=== PATIENT | male | born 1950 | race Caucasian/White ===

== ENCOUNTER → 2016-10-12 | Outpatient (REF) | payer MEDICARE ==
[~2016-10-12] MED LIST: /CIPR75TA OR; ATEN25TA OR; FOLI1TAB OR; LACT10SO8 PO; LISI10TA4 OR; MULTIVIT PO; NEUTRAPHOS PO; THIA100T OR
== END ==
LOC: M LAB REF 12:38
PROVIDERS: ATTEND Internal Medicine
DX: K70.31 Alcoholic cirrhosis of liver with ascites (principal)

== ENCOUNTER → 2017-01-29 | Outpatient (REF) | payer MEDICARE | LOC: M LAB REF 13:13 | PROVIDERS: ATTEND Internal Medicine | DX: K70.31 Alcoholic cirrhosis of liver with ascites (principal) ==

== ENCOUNTER → 2017-11-04 | Outpatient (REF) | payer MEDICARE ==
[2017-11-04 12:41] LABS: AMMONIA 18 uMOL/L (<32)
== END ==
LOC: M LAB REF 12:06
DX: K70.31 Alcoholic cirrhosis of liver with ascites (principal)
CPT/HCPCS: 82140

== ENCOUNTER → 2018-05-12 | Outpatient (REF) | payer MEDICARE ==
[2018-05-13 13:46] LABS: ALPHA FETOPROTEIN TUMOR QUANT 8.5 NG/ML (<8.1)
== END ==
LOC: M LAB REF 12:43
DX: K70.30 Alcoholic cirrhosis of liver without ascites (principal)
CPT/HCPCS: 82105

== ENCOUNTER → 2018-11-17 | Outpatient (REF) | payer MEDICARE | LOC: M LAB REF 12:46 | PROVIDERS: ATTEND Internal Medicine | DX: K70.30 Alcoholic cirrhosis of liver without ascites (principal) ==

== ENCOUNTER → 2019-05-22 | Outpatient (REF) | payer MEDICARE | LOC: M LAB REF 12:33 | PROVIDERS: ATTEND Internal Medicine | DX: K70.30 Alcoholic cirrhosis of liver without ascites (principal) ==

== ENCOUNTER 2019-06-08 08:38 | Day surgery (SDC) | payer MEDICARE ==
[~2019-06-08] VITALS: Ht 177.8 cm; Wt 125.8 kg
[~2019-06-08 08:38] MED LIST changes: +COLA100C5 PO; +CONS10SO3 PO; +FOLI1TAB11 PO; +FURO20TA2 PO; +GLIP5TAB8 PO; +MAGN64TASA PO; +MULTCAP PO; +NS 1,000 ML IV ONE; +ONGL1TAB9 PO; +PANT40TA3 PO; +POTA1TAB23 PO; +PROBCAP14 PO; +PROP60TA18 PO; +SPIR100T3 PO; +XIFA550T PO
[2019-06-08] MEDS ORDERED: PROPOFOL 200 MG/20 ML VIAL As Ordered ONE (09:27)
[2019-06-08] MEDS ORDERED: LIDOCAINE 2% INJ 100 MG/5 ML SDV (FOR ANES.) As Ordered ONE (09:27)
[2019-06-08 11:06] VITALS: BP 122/58
--- NOTE | 2019-06-08 15:50 | ROOR ---
Patient Name: Ford Olivarez Procedure Date: 06/08/2019 10:01 AM Date of : 1950 Age: 69 Room: [facility] Gender: Male Note Status: Finalized Procedure: Colonoscopy Indications: High risk colon cancer surveillance: Personal history of colonic polyps, Last colonoscopy: March 2014 Providers: Chidi Cardona MD Referring MD: BOUCHRA MANDEL JR, MD Requesting Provider: Medicines: Monitored Anesthesia Care Complications: No immediate complications. Procedure: Pre-Anesthesia Assessment: - Prior to the procedure, a History and Physical was performed, and patient medications and allergies were reviewed. The patient is competent. The risks and benefits of the procedure and the sedation options and risks were discussed with the patient. All questions were answered and informed consent was obtained. Patient identification and proposed procedure were verified by the physician, the nurse and the anesthesiologist in the procedure room. Mental Status Examination: alert and oriented. CV Examination: regular rate and rhythm. Prophylactic Antibiotics: The patient does not require prophylactic antibiotics. Prior Anticoagulants: The patient has taken no previous anticoagulant or antiplatelet agents. ASA Grade Assessment: III - A patient with severe systemic disease. After reviewing the risks and benefits, the patient was deemed in satisfactory condition to undergo the procedure. The anesthesia plan was to use monitored anesthesia care (MAC). Immediately prior to administration of medications, the patient was re-assessed for adequacy to receive sedatives. The heart rate, respiratory rate, oxygen saturations, blood pressure, adequacy of pulmonary ventilation, and response to care were monitored throughout the procedure. The physical status of the patient was re-assessed after the procedure. The Colonoscope was introduced through the anus and advanced to the cecum, identified by appendiceal orifice and ileocecal valve. The colonoscopy was performed without difficulty. The patient tolerated the procedure well. The quality of the bowel preparation was excellent. Findings: The perianal and digital rectal examinations were normal. A 3 mm polyp was found in the hepatic flexure. The polyp was semi-pedunculated. The polyp was removed with a jumbo cold forceps. Resection and retrieval were complete. Estimated blood loss was minimal. The exam was otherwise without abnormality. Impression: - One 3 mm polyp at the hepatic flexure, removed with a jumbo cold forceps. Resected and retrieved. - The examination was otherwise normal. Recommendation: - Discharge patient to home. - Resume previous diet. - Continue present medications. - Await pathology results. - Repeat colonoscopy in 5 years for surveillance. Chidi Cardona MD Chidi Cardona MD 06/08/2019 10:51:55 AM Electronically signed by Chidi Cardona MD Number of Addenda: 0 Note Initiated On: 06/08/2019 10:01 AM Estimated Blood Loss: Estimated blood loss was minimal.
== END 2019-06-08 11:08 | disposition home or self-care (01) ==
LOC: M OPP 08:38
PROVIDERS: ATTEND Surgery
DX: Z86.010 Personal history of colon polyps (principal); D12.3 Benign neoplasm of transverse colon; E11.9 Type 2 diabetes mellitus without complications; I10 Essential (primary) hypertension; R12 Heartburn; K74.60 Unspecified cirrhosis of liver; Z83.79 Family history of other diseases of the digestive system; Z79.84 Long term (current) use of oral hypoglycemic drugs; Z79.899 Other long term (current) drug therapy

== ENCOUNTER → 2020-06-03 | Outpatient (REF) | payer MEDICARE ==
[~2020-06-03] MED LIST changes: -NS 1,000 ML IV ONE; +PANT40TA29 PO; -PANT40TA3 PO
== END ==
LOC: M LAB REF 12:12
PROVIDERS: ATTEND Internal Medicine
DX: K70.30 Alcoholic cirrhosis of liver without ascites (principal)

== ENCOUNTER → 2020-08-20 | Outpatient (CLI) | payer MEDICARE ==
[~2020-08-20] MED LIST changes: +ELIQ5TAB PO; +KLOR10TA76 PO; +TRAD5TAB PO; +VITA100T89 PO
--- NOTE | 2020-08-20 12:25 | REP ---
INDICATION: PAIN IN RIGHT SHOULDER. COMPARISON: None. TECHNIQUE: Four views of the right shoulder are presented FINDINGS: . the right glenohumeral and acromioclavicular joints appear normally aligned. The AC joint is somewhat widened suggesting previous resection of the distal clavicle or post traumatic osteolysis. There is spurring of the inferior aspect of the acromion process. Periarticular soft tissues are unremarkable. The visualized right rib cage is intact. IMPRESSION: Acromion process spurring. Some widening of the AC joint. No acute bony abnormality. <Electronically signed by Kody Back > 08/20/20 [id number]
--- NOTE | 2020-08-20 12:26 | REP ---
INDICATION: PAIN IN RIGHT SHOULDER. COMPARISON: Comparison chest x-ray September 13, 2015.. TECHNIQUE: AP and tube angled views of the right clavicle are obtained. FINDINGS: The acromioclavicular joint is normally aligned. The AC joint is somewhat widened question prior osteolysis or resection of the distal clavicle. Glenohumeral articulation is normally aligned. No erosive changes seen. No fracture is noted. IMPRESSION: No acute bony abnormality. Some widening of the AC joint. <Electronically signed by Kody Back > 08/20/20 [id number]
== END ==
LOC: M ADAMS 09:59
PROVIDERS: ATTEND Nurse Practitioner Family
DX: M25.511 Pain in right shoulder (principal); M25.711 Osteophyte, right shoulder

== ENCOUNTER → 2020-09-04 | Outpatient (REF) | payer MEDICARE ==
[2020-09-04 11:46] LABS: INR 1.27; PROTHROMBIN TIME 16.2 SECONDS (12.5-14.3)
== END ==
LOC: M LAB REF 11:09
PROVIDERS: ATTEND Internal Medicine
DX: K70.30 Alcoholic cirrhosis of liver without ascites (principal)

== ENCOUNTER → 2020-09-19 | Outpatient (CLI) | payer MEDICARE | LOC: M LABSMTC 10:30 | PROVIDERS: ATTEND Anesthesiology | DX: Z01.812 Encounter for preprocedural laboratory examination (principal); Z20.822 Contact with and (suspected) exposure to COVID-19 ==

== ENCOUNTER 2020-09-24 07:36 | Day surgery (SDC) | payer MEDICARE ==
[~2020-09-24] VITALS: Ht 177.8 cm; Wt 125.6 kg
[~2020-09-24 07:36] MED LIST changes: +NS 1,000 ML IV ONE
[2020-09-24] MEDS ORDERED: LIDOCAINE 2% 100MG/5ML SDV (FOR ANES.) As Ordered ONE (07:41)
[2020-09-24] MEDS ORDERED: fentaNYL 100 MCG/2 ML INJECTION (J3010) As Ordered ONE (07:41)
[2020-09-24] MEDS ORDERED: propofoL 200 MG/20 ML VIAL As Ordered ONE (07:42)
[2020-09-24 09:35] VITALS: BP 118/74
--- NOTE | 2020-09-24 09:35 | ROOR ---
Patient Name: Ford Olivarez Procedure Date: 09/24/2020 8:54 AM Date of : 1950 Age: 70 Room: [facility] Gender: Male Note Status: Finalized Procedure: Upper GI endoscopy Indications: Surveillance for malignancy due to personal history of Mosquera's esophagus Providers: Chidi Cardona MD Referring MD: BOUCHRA MANDEL JR, MD Requesting Provider: Medicines: Monitored Anesthesia Care Complications: No immediate complications. Procedure: Pre-Anesthesia Assessment: - Prior to the procedure, a History and Physical was performed, and patient medications and allergies were reviewed. The patient is competent. The risks and benefits of the procedure and the sedation options and risks were discussed with the patient. All questions were answered and informed consent was obtained. Patient identification and proposed procedure were verified by the physician, the nurse and the anesthesiologist in the procedure room. Mental Status Examination: alert and oriented. Prophylactic Antibiotics: The patient does not require prophylactic antibiotics. Prior Anticoagulants: The patient has taken no previous anticoagulant or antiplatelet agents. ASA Grade Assessment: III - A patient with severe systemic disease. After reviewing the risks and benefits, the patient was deemed in satisfactory condition to undergo the procedure. The anesthesia plan was to use monitored anesthesia care (MAC). Immediately prior to administration of medications, the patient was re-assessed for adequacy to receive sedatives. The heart rate, respiratory rate, oxygen saturations, blood pressure, adequacy of pulmonary ventilation, and response to care were monitored throughout the procedure. The physical status of the patient was re-assessed after the procedure. The Endoscope was introduced through the mouth, and advanced to the second part of duodenum. The upper GI endoscopy was accomplished without difficulty. The patient tolerated the procedure well. Findings: The esophagus and gastroesophageal junction were examined with white light. There were esophageal mucosal changes consistent with long-segment Mosquera's esophagus. These changes involved the mucosa at the upper extent of the gastric folds (40 cm from the incisors) extending to the Z-line. Two tongues of salmon-colored mucosa were present from 30 to 40 cm. The maximum longitudinal extent of these esophageal mucosal changes was 10 cm in length. Mucosa was biopsied with a cold forceps for histology. One specimen bottle was sent to pathology. Estimated blood loss was minimal. Patchy moderate inflammation characterized by congestion (edema), erythema and granularity was found on the greater curvature of the stomach and in the prepyloric region of the stomach. This was biopsied with a cold forceps for histology. Estimated blood loss was minimal. The first portion of the duodenum and second portion of the duodenum were normal. 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 Biopsied. - Chronic gastritis. Biopsied. - Normal first portion of the duodenum and second portion of the duodenum. Recommendation: - Discharge patient to home. - Resume previous diet. - Continue present medications. - Await pathology results. Procedure Code(s): --- Professional --- 55322, Esophagogastroduodenoscopy, flexible, transoral; with biopsy, single or multiple Diagnosis Code(s): --- Professional --- K22.70, Mosquera's esophagus without dysplasia K29.50, Unspecified chronic gastritis without bleeding CPT copyright 2019 [employer]. All rights reserved. The codes documented in this report are preliminary and upon screwhead polisher review may be revised to meet current compliance requirements. Chidi Cardona MD Chidi Cardona MD 09/24/2020 9:34:54 AM Electronically signed by Chidi Cardona MD Number of Addenda: 0 Note Initiated On: 09/24/2020 8:54 AM Estimated Blood Loss: Estimated blood loss was minimal.
== END 2020-09-24 09:44 | disposition home or self-care (01) ==
LOC: M OPP 07:36
PROVIDERS: ATTEND Surgery
DX: K22.70 Barrett's esophagus without dysplasia (principal); K29.50 Unspecified chronic gastritis without bleeding; D13.0 Benign neoplasm of esophagus; D13.1 Benign neoplasm of stomach; I48.91 Unspecified atrial fibrillation; E11.9 Type 2 diabetes mellitus without complications; K21.9 Gastro-esophageal reflux disease without esophagitis; M19.90 Unspecified osteoarthritis, unspecified site; K74.60 Unspecified cirrhosis of liver; Z79.01 Long term (current) use of anticoagulants; G47.30 Sleep apnea, unspecified; F10.20 Alcohol dependence, uncomplicated; Z79.84 Long term (current) use of oral hypoglycemic drugs; Z79.899 Other long term (current) drug therapy
CPT/HCPCS: 43239; 88305; J3010

== ENCOUNTER → 2020-10-09 | Outpatient (CLI) | payer MEDICARE ==
[~2020-10-09] MED LIST changes: -NS 1,000 ML IV ONE
== END ==
LOC: M RADPRO 09:00
PROVIDERS: ATTEND Physician Assistant
DX: M25.511 Pain in right shoulder (principal); Z53.9 Procedure and treatment not carried out, unspecified reason

== ENCOUNTER → 2020-11-26 | Outpatient (REF) | payer MEDICARE | LOC: M LAB REF 12:27 | PROVIDERS: ATTEND Internal Medicine | DX: K70.30 Alcoholic cirrhosis of liver without ascites (principal) ==

== ENCOUNTER → 2020-11-29 | Outpatient (CLI) | payer MEDICARE | LOC: M LABSMTC 09:46 | PROVIDERS: ATTEND Internal Medicine Cardiovascular Disease | DX: Z20.822 Contact with and (suspected) exposure to COVID-19 (principal) ==

== ENCOUNTER → 2021-02-10 | Outpatient (REF) | payer MEDICARE | LOC: M LAB REF 11:15 | PROVIDERS: ATTEND Internal Medicine | DX: K70.30 Alcoholic cirrhosis of liver without ascites (principal) ==

== ENCOUNTER 2021-02-14 10:10 | Emergency (ER) | payer MEDICARE ==
[~2021-02-14] VITALS: Ht 180.3 cm; Wt 117.8 kg
[2021-02-14] MEDS ORDERED: TRAM50TA2 PO (11:42)
[2021-02-14] MEDS ORDERED: TRIA25CR TOP (13:26)
[2021-02-14 13:39] VITALS: BP 129/74
== END 2021-02-14 13:40 | disposition home or self-care (01) ==
LOC: M ED 10:10
DX: N47.1 Phimosis (principal); N99.89 Other postprocedural complications and disorders of genitourinary system; I48.91 Unspecified atrial fibrillation; Z79.01 Long term (current) use of anticoagulants; Z79.899 Other long term (current) drug therapy; Z98.890 Other specified postprocedural states

== ENCOUNTER → 2021-03-14 | Outpatient (CLI) | payer MEDICARE ==
[~2021-03-14] MED LIST changes: +TRAM50TA2 PO; +TRIA25CR TOP
== END ==
LOC: M LABSMTC 10:09
PROVIDERS: ATTEND Internal Medicine Cardiovascular Disease
DX: Z01.812 Encounter for preprocedural laboratory examination (principal); Z20.822 Contact with and (suspected) exposure to COVID-19

== ENCOUNTER → 2021-03-17 | Outpatient (REF) | payer MEDICARE ==
[~2021-03-17] MED LIST changes: +JARD1TAB3; +POTA1TAB23
[2021-03-17 17:43] LABS: INR 1.19; PROTHROMBIN TIME 15.6 SECONDS (12.7-14.5)
== END ==
LOC: M LAB REF 16:27
PROVIDERS: ATTEND Internal Medicine
DX: Z01.818 Encounter for other preprocedural examination (principal); N47.1 Phimosis; I48.91 Unspecified atrial fibrillation; I10 Essential (primary) hypertension

== ENCOUNTER → 2021-03-26 | Outpatient (CLI) | payer MEDICARE ==
[~2021-03-26] MED LIST changes: +CLOP75TA2 PO; -POTA1TAB23
== END ==
LOC: M LABSMTC 11:40
PROVIDERS: ATTEND Anesthesiology
DX: Z01.812 Encounter for preprocedural laboratory examination (principal); Z20.822 Contact with and (suspected) exposure to COVID-19

== ENCOUNTER → 2021-03-26 | Outpatient (CLI) | payer MEDICARE ==
--- NOTE | 2021-03-26 16:28 | REP ---
INDICATION: PHIMOSIS COMPARISON: 09/13/2015. TECHNIQUE: PA/Lateral FINDINGS: Lungs: Clear, no infiltrate. Heart: There is stable mild cardiomegaly. Mediastinum: Mediastinal silhouette unremarkable and unchanged. There is mild elevation of the right hemidiaphragm unchanged. Pleural angles: Unremarkable.. Bones and soft tissues: There are degenerative changes of the spine without compression deformity. IMPRESSION: No acute pulmonary disease. Stable mild cardiomegaly. <Electronically signed by Joey Ramey > 03/26/21 [id number]
== END ==
LOC: M PLAIMG 12:22
PROVIDERS: ATTEND Nurse Practitioner Women's Health
DX: Z01.818 Encounter for other preprocedural examination (principal); N47.1 Phimosis; I51.7 Cardiomegaly; Z20.822 Contact with and (suspected) exposure to COVID-19
CPT/HCPCS: 71046; U0002

== ENCOUNTER 2021-03-27 06:59 | Day surgery (SDC) | payer MEDICARE ==
[~2021-03-27] VITALS: Ht 177.8 cm; Wt 119.2 kg
[~2021-03-27 06:59] MED LIST changes: -CLOP75TA2 PO; -KLOR10TA76 PO; +POTA-136 PO; +ceFAZolin SOD 1 GM in D5W MINI-BAG PLUS 50 ML IV ONE; +ceFAZolin SOD 2 GM in IV 1 EA IV ONE
[2021-03-27] MEDS ORDERED: LR 1,000 ML IV ONE (07:45)
[2021-03-27] MEDS ORDERED: MIDAZOLAM INJ 2MG/2ML VIAL (J2250 PER 1MG) As Ordered ONE (07:57)
[2021-03-27] MEDS ORDERED: ONDANSETRON 4MG/2ML VIAL As Ordered ONE (07:57)
[2021-03-27] MEDS ORDERED: dexameTHASONE 4 MG/ML 1ML VIAL (J1100 PER 1MG) As Ordered ONE (07:57)
[2021-03-27] MEDS ORDERED: LIDOCAINE 2% INJ 100 MG/5 ML SYRINGE As Ordered ONE (07:57)
[2021-03-27] MEDS ORDERED: fentaNYL 100 MCG/2 ML INJECTION (J3010) As Ordered ONE ×2 (07:57→09:49)
[2021-03-27] MEDS ORDERED: propofoL 200 MG/20 ML VIAL As Ordered ONE (07:57)
[2021-03-27] MEDS ORDERED: LIDOCAINE 2% 100MG/5ML SDV (FOR ANES.) As Ordered ONE (08:03)
[2021-03-27] MEDS ORDERED: CLOP75TA2 PO (08:17)
[2021-03-27] MEDS ORDERED: PROPRANOLOL 20 MG TAB PO ONE (08:30)
[2021-03-27 08:31] VITALS: BP 167/82
[2021-03-27] MEDS ORDERED: LIDOCAINE 5% OINT 30GM TUBE As Ordered ONE (08:31)
[2021-03-27] MEDS ORDERED: BACITRACIN OINTMENT 30GM TUBE As Ordered ONE (08:33)
--- NOTE | 2021-03-27 11:00 | ROOPDOC ---
[facility] Report Of Operation Report of Operation DATE OF PROCEDURE: 03/27/21 PREOPERATIVE DIAGNOSIS: Phimosis. POSTOPERATIVE DIAGNOSIS: Phimosis. PROCEDURE: Circumcision. SURGEON: Dr. Franchesca Hammond COMPLAINTS COORDINATOR: None. ANESTHESIA: General. OPERATIVE INDICATIONS: This 70-year-old who has had recurrent episodes of balanoposthitis. It was recommended that he undergo a circumcision to help prevent this from happening. He is brought to the operating room today for treatment. DESCRIPTION OF PROCEDURE: The patient was brought to the operating room, and general anesthesia was induced. Prophylactic antibiotics were infused. He was then placed in the supine position and prepped and draped in the usual sterile fashion. At this point, circumcising incisions were made at the level of the coronal sulcus with the foreskin retracted off the glans and also with it pulled on top of the glans. All the skin in between the two circumcising incisions was then removed using electrocautery. Once that was done, any small bleeding vessels were controlled with electrocautery. Once satisfied with hemostasis, the remaining skin on the penile shaft was reapproximated to the glans using interrupted 3-0 chromic suture. After that was done, dressings were applied, including a Sujata and a Coban, and once the dressings were applied this marked the conclusion of the procedure. The patient was then awakened from anesthesia and transported to the recovery room in stable condition. ESTIMATED BLOOD LOSS: 30 mL. COMPLICATIONS: None. SPECIMENS: Foreskin. PLAN: The patient will be discharged home. He will leave his dressing on for 2 days and then remove it in the shower. He will followup in urology clinic in approximately 2-3 weeks for a postoperative visit. FRANCHESCA HAMMOND MD Mar 27, 2021 11:00
[2021-03-27] MEDS ORDERED: fentaNYL 100 MCG/2 ML INJECTION (J3010) IV PRN (11:05)
[2021-03-27] MEDS ORDERED: LR 1,000 ML IV SCH (11:05)
[2021-03-27] MEDS ORDERED: METOCLOPRAMIDE INJ 10MG/2ML VIAL (J2765 PER 1) IV PRN (11:05)
[2021-03-27] MEDS ORDERED: ONDANSETRON 4MG/2ML VIAL IV PRN (11:05)
[2021-03-27] MEDS ORDERED: traMADol 50 MG TAB PO PRN (11:10)
[2021-03-27 11:35] VITALS: BP 132/85
== END 2021-03-27 12:20 | disposition home or self-care (01) ==
LOC: M SDC 06:59
PROVIDERS: ATTEND Urology
DX: N47.1 Phimosis (principal); I10 Essential (primary) hypertension; R51.9 Headache, unspecified; E11.9 Type 2 diabetes mellitus without complications; I48.91 Unspecified atrial fibrillation; M54.5 Low back pain; K22.70 Barrett's esophagus without dysplasia; K70.30 Alcoholic cirrhosis of liver without ascites; G47.33 Obstructive sleep apnea (adult) (pediatric); Z86.79 Personal history of other diseases of the circulatory system; Z79.01 Long term (current) use of anticoagulants; Z79.899 Other long term (current) drug therapy
CPT/HCPCS: 54161; 88304; J0690; J1100; J2250; J2405; J3010

== ENCOUNTER → 2021-07-28 | Outpatient (CLI) | payer MEDICARE ==
[~2021-07-28] MED LIST changes: +CLOP75TA2 PO; -ceFAZolin SOD 1 GM in D5W MINI-BAG PLUS 50 ML IV ONE; -ceFAZolin SOD 2 GM in IV 1 EA IV ONE
== END ==
LOC: M RAD 08:32
PROVIDERS: ATTEND Internal Medicine
DX: K70.30 Alcoholic cirrhosis of liver without ascites (principal)

== ENCOUNTER → 2022-08-26 | Outpatient (CLI) | payer MEDICARE | LOC: M RAD 07:18 | PROVIDERS: ATTEND Internal Medicine | DX: K70.30 Alcoholic cirrhosis of liver without ascites (principal); N28.1 Cyst of kidney, acquired ==

== ENCOUNTER → 2022-10-27 | Outpatient (CLI) | payer MEDICARE ==
[2022-10-27 14:59] LABS: BASO % 0.6 % (0.0-1.0); EOS # 0.6 10^3/uL (0.0-0.5); EOS % 8.6 % (0.0-3.0); HEMATOCRIT 45.3 % (42.0-52.0); HEMOGLOBIN 14.4 g/dl (13.5-17.5); LYMPH % 15.2 % (24.0-44.0); MEAN CORPUSCULAR HGB CONC 31.8 g/dl (32.0-36.5); MEAN CORPUSCULAR VOLUME 94.4 fl (80.0-96.0); MONO # 0.7 10^3/uL (0.0-0.8); NEUTROPHILS # 4.2 10^3/uL (1.5-8.5); NEUTROPHILS % 65.3 % (36.0-66.0); WHITE BLOOD COUNT 6.5 10^3/uL (4.0-10.0)
[2022-10-27 15:23] LABS: ALBUMIN 3.1 G/DL (3.2-5.2); ALKALINE PHOSPHATASE 78 U/L (46-116); ALT/SGPT 17 U/L (7.0-40); AST/SGOT 21 U/L (<34); BILIRUBIN,TOTAL 1.1 MG/DL (0.3-1.2); BLOOD UREA NITROGEN 16 MG/DL (9-23); CALCIUM LEVEL 8.5 MG/DL (8.3-10.6); CARBON DIOXIDE LEVEL 31 MMOL/L (20-31); CHLORIDE LEVEL 102 MMOL/L (98-107); CHOLESTEROL LEVEL 156 MG/DL (<200); CHOLESTEROL RISK RATIO 2.97 (<5); CREATININE FOR GFR 0.94 MG/DL (0.70-1.30); GLOMERULAR FILTRATION RATE > 60.0 (>42); GLUCOSE, FASTING 131 MG/DL (74-106); HDL CHOLESTEROL 52.4 MG/DL (>40); LDL CHOLESTEROL 85.6 MG/DL (<100); MAGNESIUM LEVEL 1.6 MG/DL (1.8-2.4); NON-HDL-C 103.6 MG/DL; POTASSIUM SERUM 3.6 MMOL/L (3.5-5.1); SODIUM LEVEL 140 MMOL/L (136-145); TOTAL PROTEIN 7.6 G/DL (5.7-8.2); TRIGLYCERIDES LEVEL 90 MG/DL (<150)
[2022-10-27 16:04] LABS: PLATELET COUNT, AUTOMATED 87 10^3/uL (150-450)
[2022-10-27 16:17] LABS: HEMOGLOBIN A1c 6.2 % (4.0-6.0)
== END ==
LOC: M LABDRWAD 11:29
PROVIDERS: ATTEND Internal Medicine
DX: E78.00 Pure hypercholesterolemia, unspecified (principal); E11.36 Type 2 diabetes mellitus with diabetic cataract; I10 Essential (primary) hypertension; E83.42 Hypomagnesemia

== ENCOUNTER → 2023-03-08 | Outpatient (REF) | payer MEDICARE ==
[2023-03-08 12:45] LABS: HEMOGLOBIN 12.7 g/dl (13.5-17.5); MEAN CORPUSCULAR VOLUME 90.5 fl (80.0-96.0); RED BLOOD COUNT 4.53 10^6/uL (4.30-6.10)
[2023-03-08 12:48] LABS: PLATELET COUNT, AUTOMATED 78 10^3/uL (150-450)
[2023-03-08 13:16] LABS: ALBUMIN 3.1 G/DL (3.2-5.2); ALKALINE PHOSPHATASE 83 U/L (46-116); ALT/SGPT 23 U/L (7.0-40); AST/SGOT 21 U/L (<34); BILIRUBIN,TOTAL 0.6 MG/DL (0.3-1.2); BLOOD UREA NITROGEN 16 MG/DL (9-23); CALCIUM LEVEL 8.9 MG/DL (8.3-10.6); CARBON DIOXIDE LEVEL 30 MMOL/L (20-31); CHLORIDE LEVEL 103 MMOL/L (98-107); CREATININE FOR GFR 0.87 MG/DL (0.70-1.30); GLOMERULAR FILTRATION RATE > 60.0 (>42); GLUCOSE, FASTING 139 MG/DL (74-106); POTASSIUM SERUM 4.3 MMOL/L (3.5-5.1); SODIUM LEVEL 141 MMOL/L (136-145); TOTAL PROTEIN 7.4 G/DL (5.7-8.2)
[2023-03-08 13:26] LABS: HEMOGLOBIN A1c 6.2 % (4.0-6.0)
== END ==
LOC: M LABDRWAD 12:18
PROVIDERS: ATTEND Internal Medicine
DX: I10 Essential (primary) hypertension (principal); E11.21 Type 2 diabetes mellitus with diabetic nephropathy; K22.70 Barrett's esophagus without dysplasia

== ENCOUNTER → 2023-04-05 | Outpatient (CLI) | payer MEDICARE | LOC: M RAD 07:39 | PROVIDERS: ATTEND Internal Medicine | DX: K74.60 Unspecified cirrhosis of liver (principal); K76.0 Fatty (change of) liver, not elsewhere classified; R16.0 Hepatomegaly, not elsewhere classified ==

== ENCOUNTER → 2023-07-07 | Outpatient (REF) | payer MEDICARE ==
[~2023-07-07] MED LIST changes: +GLIP5TAB17 PO; -GLIP5TAB8 PO
[2023-07-07 17:18] LABS: HEMATOCRIT 33.9 % (42.0-52.0); HEMOGLOBIN 9.7 g/dl (13.5-17.5); MEAN CORPUSCULAR HEMOGLOBIN 24.6 pg (27.0-33.0); MEAN CORPUSCULAR HGB CONC 28.6 g/dl (32.0-36.5); MEAN CORPUSCULAR VOLUME 85.8 fl (80.0-96.0); PLATELET COUNT, AUTOMATED 107 10^3/uL (150-450); RED BLOOD COUNT 3.95 10^6/uL (4.30-6.10); WHITE BLOOD COUNT 5.6 10^3/uL (4.0-10.0)
[2023-07-07 17:40] LABS: CREATININE, URINE 98.1 MG/DL; CREATININE,RANDOM URINE 98.1 MG/DL; MAU/CREAT RATIO 134.5 MCG/MG (0.0-30.0)
[2023-07-07 17:42] LABS: ALBUMIN 3.4 G/DL (3.2-5.2); ALKALINE PHOSPHATASE 67 U/L (46-116); ALT/SGPT 11 U/L (7.0-40); AST/SGOT 10 U/L (<34); BILIRUBIN,TOTAL 1.1 MG/DL (0.3-1.2); BLOOD UREA NITROGEN 16 MG/DL (9-23); CALCIUM LEVEL 8.6 MG/DL (8.3-10.6); CARBON DIOXIDE LEVEL 29 MMOL/L (20-31); CHLORIDE LEVEL 103 MMOL/L (98-107); CHOLESTEROL LEVEL 151 MG/DL (<200); CHOLESTEROL RISK RATIO 2.94 (<5); CREATININE FOR GFR 0.93 MG/DL (0.70-1.30); GLOMERULAR FILTRATION RATE > 60.0 (>42); GLUCOSE, FASTING 128 MG/DL (74-106); HDL CHOLESTEROL 51.2 MG/DL (>40); LDL CHOLESTEROL 84.8 MG/DL (<100); NON-HDL-C 99.8 MG/DL; POTASSIUM SERUM 3.6 MMOL/L (3.5-5.1); SODIUM LEVEL 137 MMOL/L (136-145); TOTAL PROTEIN 7.7 G/DL (5.7-8.2); TRIGLYCERIDES LEVEL 75 MG/DL (<150)
[2023-07-07 17:49] LABS: HEMOGLOBIN A1c 6.1 % (4.0-6.0)
== END ==
LOC: M LABDRWAD 16:11
PROVIDERS: ATTEND Internal Medicine
DX: Z79.899 Other long term (current) drug therapy (principal)

== ENCOUNTER 2023-07-19 11:59 | Emergency (ER) | payer MEDICARE ==
[~2023-07-19] VITALS: Ht 175.3 cm; Wt 114.6 kg
[2023-07-19] MEDS ORDERED: ASPI81CH33 PO (12:17)
[2023-07-19] MEDS ORDERED: JARD1TAB3 (12:17)
[2023-07-19] MEDS ORDERED: methylPREDNISolone 125MG 2ML VIAL IM ONE (12:50)
[2023-07-19] MEDS ORDERED: ALBUTEROL SULFATE 2.5MG/0.5ML INH NEB SOLN NEB ONE (12:50)
[2023-07-19] MEDS ORDERED: ALBUTEROL 90 MCG/ACT 8GM HFA INHALER INH ONE (13:25)
[2023-07-19 13:38] VITALS: O2SAT 95
[2023-07-19 14:04] VITALS: BP 126/66; TEMP 97.1; O2SAT 96
== END 2023-07-19 14:02 | disposition home or self-care (01) ==
LOC: M ED 11:59
DX: U07.1 COVID-19 (principal); E11.9 Type 2 diabetes mellitus without complications; Z86.79 Personal history of other diseases of the circulatory system; Z79.82 Long term (current) use of aspirin; Z79.899 Other long term (current) drug therapy; Z79.810 Long term (current) use of selective estrogen receptor modulators (SERMs)
CPT/HCPCS: 71046; 87486; 87581; 87633; 87798; 94640; 96372; 99284; J2930

== ENCOUNTER → 2023-09-20 | Outpatient (CLI) | payer MEDICARE ==
[~2023-09-20] MED LIST changes: +ASPI81CH33 PO
== END ==
LOC: M RAD 08:14
PROVIDERS: ATTEND Internal Medicine
DX: K70.30 Alcoholic cirrhosis of liver without ascites (principal); N28.1 Cyst of kidney, acquired

== ENCOUNTER 2023-10-07 11:29 | Emergency (ER) | payer MEDICARE ==
[~2023-10-07] VITALS: Ht 177.8 cm; Wt 112.9 kg
[2023-10-07 12:19] LABS: VENOUS BASE EXCESS 0.6 (-2.0-2.0); VENOUS HCO3 26.1 MMOL/L (23.0-27.0); VENOUS O2 SATURATION 42.5 % (60.0-80.0); VENOUS PARTIAL PRESSURE O2 27.5 mmHg (30.0-50.0); VENOUS PH 7.371 UNITS (7.330-7.430); VENOUS STANDARD HCO3 24.2 MMOL/L; VENOUS TOTAL CO2 27.5 MMOL/L (24.0-28.0)
[2023-10-07 12:31] LABS: BASO % 0.3 % (0.0-1.0); EOS # 0.2 10^3/uL (0.0-0.5); EOS % 3.7 % (0.0-3.0); HEMATOCRIT 27.9 % (42.0-52.0); HEMOGLOBIN 7.7 g/dl (13.5-17.5); LYMPH # 0.6 10^3/uL (1.5-5.0); LYMPH % 10.4 % (24.0-44.0); MEAN CORPUSCULAR HEMOGLOBIN 21.4 pg (27.0-33.0); MEAN CORPUSCULAR HGB CONC 27.6 g/dl (32.0-36.5); MEAN CORPUSCULAR VOLUME 77.5 fl (80.0-96.0); MONO # 0.5 10^3/uL (0.0-0.8); MONO % 8.5 % (2.0-8.0); NEUTROPHILS # 4.5 10^3/uL (1.5-8.5); NEUTROPHILS % 76.8 % (36.0-66.0); PLATELET COUNT, AUTOMATED 104 10^3/uL (150-450); WHITE BLOOD COUNT 5.9 10^3/uL (4.0-10.0)
[2023-10-07 12:53] LABS: CK-MB VALUE MASS < 1.0 NG/ML (<3.6)
[2023-10-07 12:57] LABS: ALBUMIN 3.2 G/DL (3.2-5.2); ALKALINE PHOSPHATASE 69 U/L (46-116); ALT/SGPT 10 U/L (7.0-40); AST/SGOT 12 U/L (<34); BILIRUBIN,DIRECT 0.5 MG/DL (<0.4); BILIRUBIN,TOTAL 1.2 MG/DL (0.3-1.2); BLOOD UREA NITROGEN 18 MG/DL (9-23); CALCIUM LEVEL 8.3 MG/DL (8.3-10.6); CARBON DIOXIDE LEVEL 28 MMOL/L (20-31); CHLORIDE LEVEL 104 MMOL/L (98-107); CREATININE FOR GFR 0.94 MG/DL (0.70-1.30); GLOMERULAR FILTRATION RATE > 60.0 (>42); GLUCOSE, FASTING 158 MG/DL (74-106); SODIUM LEVEL 138 MMOL/L (136-145); TOTAL PROTEIN 7.4 G/DL (5.7-8.2)
[2023-10-07 13:01] LABS: CPK CREATINE PHOSPHOKINASE 95 U/L (46-171); MB/CK RELATIVE INDEX 1.05 (< OR =4)
[2023-10-07 14:29] VITALS: BP 108/58; TEMP 97.9; O2SAT 100
== END 2023-10-07 14:36 | disposition home or self-care (01) ==
LOC: M ED 11:29
DX: I48.91 Unspecified atrial fibrillation (principal); R06.02 Shortness of breath; E11.9 Type 2 diabetes mellitus without complications; I10 Essential (primary) hypertension; E78.5 Hyperlipidemia, unspecified; K21.9 Gastro-esophageal reflux disease without esophagitis; Z79.899 Other long term (current) drug therapy; Z79.82 Long term (current) use of aspirin

== ENCOUNTER → 2023-10-18 | Outpatient (REF) | payer MEDICARE ==
[2023-10-18 17:39] LABS: HEMATOCRIT 25.9 % (42.0-52.0); HEMOGLOBIN 7.1 g/dl (13.5-17.5); MEAN CORPUSCULAR HEMOGLOBIN 21.6 pg (27.0-33.0); MEAN CORPUSCULAR HGB CONC 27.4 g/dl (32.0-36.5); PLATELET COUNT, AUTOMATED 105 10^3/uL (150-450); RED BLOOD COUNT 3.28 10^6/uL (4.30-6.10); WHITE BLOOD COUNT 4.9 10^3/uL (4.0-10.0)
[2023-10-18 17:42] LABS: ALKALINE PHOSPHATASE 67 U/L (46-116); ALT/SGPT 9 U/L (7.0-40); AST/SGOT < 8 U/L (<34); BILIRUBIN,TOTAL 1.1 MG/DL (0.3-1.2); BLOOD UREA NITROGEN 13 MG/DL (9-23); CALCIUM LEVEL 8.4 MG/DL (8.3-10.6); CARBON DIOXIDE LEVEL 28 MMOL/L (20-31); CHLORIDE LEVEL 103 MMOL/L (98-107); CREATININE FOR GFR 0.86 MG/DL (0.70-1.30); GLOMERULAR FILTRATION RATE > 60.0 (>42); GLUCOSE, FASTING 153 MG/DL (74-106); POTASSIUM SERUM 4.4 MMOL/L (3.5-5.1); SODIUM LEVEL 138 MMOL/L (136-145)
[2023-10-18 18:01] LABS: CREATININE, URINE 231.7 MG/DL; MAU/CREAT RATIO 110.4 MCG/MG (0.0-30.0)
== END ==
LOC: M LABDRWAD 16:46
PROVIDERS: ATTEND Internal Medicine
DX: I10 Essential (primary) hypertension (principal); E11.21 Type 2 diabetes mellitus with diabetic nephropathy; K22.70 Barrett's esophagus without dysplasia

== ENCOUNTER → 2023-10-28 | Outpatient (REF) | payer MEDICARE ==
[2023-10-28 17:16] LABS: INR 1.24; PROTHROMBIN TIME 15.2 SECONDS (12.5-14.5)
== END ==
LOC: M LAB REF 16:16
PROVIDERS: ATTEND Internal Medicine
DX: K70.30 Alcoholic cirrhosis of liver without ascites (principal)

== ENCOUNTER → 2023-11-17 | Outpatient (REF) | payer MEDICARE ==
[2023-11-17 15:18] LABS: HEMOGLOBIN A1c 4.8 % (4.0-6.0)
[2023-11-17 15:24] LABS: BASO % 0.6 % (0.0-1.0); EOS # 0.3 10^3/uL (0.0-0.5); EOS % 5.9 % (0.0-3.0); HEMATOCRIT 39.2 % (42.0-52.0); HEMOGLOBIN 11.4 g/dl (13.5-17.5); LYMPH % 18.8 % (24.0-44.0); MEAN CORPUSCULAR HGB CONC 29.1 g/dl (32.0-36.5); MEAN CORPUSCULAR VOLUME 89.3 fl (80.0-96.0); MONO # 0.5 10^3/uL (0.0-0.8); MONO % 8.7 % (2.0-8.0); NEUTROPHILS # 3.5 10^3/uL (1.5-8.5); NEUTROPHILS % 65.8 % (36.0-66.0); RED BLOOD COUNT 4.39 10^6/uL (4.30-6.10); WHITE BLOOD COUNT 5.3 10^3/uL (4.0-10.0)
[2023-11-17 15:25] LABS: ALBUMIN 3.3 G/DL (3.2-5.2); ALKALINE PHOSPHATASE 81 U/L (46-116); ALT/SGPT 9 U/L (7.0-40); AST/SGOT 16 U/L (<34); BILIRUBIN,TOTAL 0.8 MG/DL (0.3-1.2); BLOOD UREA NITROGEN 17 MG/DL (9-23); CALCIUM LEVEL 8.8 MG/DL (8.3-10.6); CARBON DIOXIDE LEVEL 30 MMOL/L (20-31); CHLORIDE LEVEL 103 MMOL/L (98-107); CREATININE FOR GFR 0.86 MG/DL (0.70-1.30); GLOMERULAR FILTRATION RATE > 60.0 (>42); GLUCOSE, FASTING 102 MG/DL (74-106); POTASSIUM SERUM 4.3 MMOL/L (3.5-5.1); SODIUM LEVEL 140 MMOL/L (136-145); TOTAL PROTEIN 7.6 G/DL (5.7-8.2)
[2023-11-17 15:26] LABS: PLATELET COUNT, AUTOMATED 87 10^3/uL (150-450)
== END ==
LOC: M LABDRWAD 12:54
PROVIDERS: ATTEND Internal Medicine
DX: D62 Acute posthemorrhagic anemia (principal); E11.51 Type 2 diabetes mellitus with diabetic peripheral angiopathy without gangrene; E11.36 Type 2 diabetes mellitus with diabetic cataract

== ENCOUNTER → 2023-12-22 | Outpatient (REF) | payer MEDICARE | LOC: M LABDRWAD 12:44 | PROVIDERS: ATTEND Internal Medicine | DX: Z12.5 Encounter for screening for malignant neoplasm of prostate (principal) | CPT/HCPCS: 36415; G0103 ==

== ENCOUNTER → 2024-03-06 | Outpatient (REF) | payer MEDICARE ==
[2024-03-06 13:03] LABS: BASO % 0.7 % (0.0-1.0); EOS # 0.2 10^3/uL (0.0-0.5); EOS % 3.8 % (0.0-3.0); HEMATOCRIT 47.5 % (42.0-52.0); HEMOGLOBIN 15.3 g/dl (13.5-17.5); LYMPH # 1.1 10^3/uL (1.5-5.0); LYMPH % 18.7 % (24.0-44.0); MEAN CORPUSCULAR HGB CONC 32.2 g/dl (32.0-36.5); MEAN CORPUSCULAR VOLUME 96.2 fl (80.0-96.0); MONO # 0.6 10^3/uL (0.0-0.8); MONO % 10.1 % (2.0-8.0); NEUTROPHILS # 3.9 10^3/uL (1.5-8.5); NEUTROPHILS % 66.4 % (36.0-66.0); RED BLOOD COUNT 4.94 10^6/uL (4.30-6.10); WHITE BLOOD COUNT 5.8 10^3/uL (4.0-10.0)
[2024-03-06 13:06] LABS: PLATELET COUNT, AUTOMATED 64 10^3/uL (150-450)
[2024-03-06 13:20] LABS: HEMOGLOBIN A1c 6.1 % (4.0-6.0)
[2024-03-06 13:37] LABS: IRON (FE) 58 UG/DL (65-175); PERCENT SATURATION 17.4 % (19.7-50.0); TOTAL IRON BINDING CAPACITY 334 UG/DL (250-425)
[2024-03-06 13:38] LABS: ALBUMIN 3.5 G/DL (3.2-5.2); ALKALINE PHOSPHATASE 93 U/L (46-116); ALT/SGPT 20 U/L (7.0-40); AST/SGOT 15 U/L (<34); BILIRUBIN,TOTAL 0.8 MG/DL (0.3-1.2); BLOOD UREA NITROGEN 12 MG/DL (9-23); CALCIUM LEVEL 8.9 MG/DL (8.3-10.6); CARBON DIOXIDE LEVEL 33 MMOL/L (20-31); CHLORIDE LEVEL 103 MMOL/L (98-107); CHOLESTEROL LEVEL 156 MG/DL (<200); CHOLESTEROL RISK RATIO 3.33 (<5); CREATININE FOR GFR 0.86 MG/DL (0.70-1.30); CREATININE, URINE 87.9 MG/DL; GLOMERULAR FILTRATION RATE > 60.0 (>42); GLUCOSE, FASTING 133 MG/DL (74-106); HDL CHOLESTEROL 46.8 MG/DL (>40); LDL CHOLESTEROL 91.4 MG/DL (<100); MAU/CREAT RATIO 45.5 MCG/MG (0.0-30.0); NON-HDL-C 109.2 MG/DL; SODIUM LEVEL 141 MMOL/L (136-145); TOTAL PROTEIN 8.1 G/DL (5.7-8.2); TRIGLYCERIDES LEVEL 89 MG/DL (<150)
== END ==
LOC: M LABDRWAD 12:28
PROVIDERS: ATTEND Internal Medicine
DX: K21.9 Gastro-esophageal reflux disease without esophagitis (principal); D50.9 Iron deficiency anemia, unspecified; E11.36 Type 2 diabetes mellitus with diabetic cataract; E78.00 Pure hypercholesterolemia, unspecified

== ENCOUNTER → 2024-04-19 | Outpatient (CLI) | payer MEDICARE | LOC: M RAD 09:06 | PROVIDERS: ATTEND Internal Medicine | DX: K70.30 Alcoholic cirrhosis of liver without ascites (principal); N28.1 Cyst of kidney, acquired ==

== ENCOUNTER → 2024-06-06 | Outpatient (REF) | payer MEDICARE ==
[2024-06-06 13:48] LABS: HEMATOCRIT 48.8 % (42.0-52.0); MEAN CORPUSCULAR HEMOGLOBIN 31.8 pg (27.0-33.0); MEAN CORPUSCULAR HGB CONC 32.8 g/dl (32.0-36.5); RED BLOOD COUNT 5.03 10^6/uL (4.30-6.10); WHITE BLOOD COUNT 6.6 10^3/uL (4.0-10.0)
[2024-06-06 13:50] LABS: PLATELET COUNT, AUTOMATED 68 10^3/uL (150-450)
[2024-06-06 14:02] LABS: HEMOGLOBIN A1c 6.4 % (4.0-6.0)
[2024-06-06 14:18] LABS: ALBUMIN 3.2 G/DL (3.2-5.2); ALKALINE PHOSPHATASE 88 U/L (40-129); ALT/SGPT 17 U/L (7.0-40); AST/SGOT 13 U/L (<34); BILIRUBIN,TOTAL 1.1 MG/DL (0.3-1.2); BLOOD UREA NITROGEN 17 MG/DL (9-23); CALCIUM LEVEL 8.8 MG/DL (8.3-10.6); CARBON DIOXIDE LEVEL 31 MMOL/L (20-31); CHLORIDE LEVEL 103 MMOL/L (98-107); CHOLESTEROL LEVEL 168 MG/DL (<200); CHOLESTEROL RISK RATIO 3.57 (<5); CREATININE, URINE 95.7 MG/DL; GLOMERULAR FILTRATION RATE > 60.0 (>42); GLUCOSE, FASTING 138 MG/DL (74-106); LDL CHOLESTEROL 101.2 MG/DL (<100); POTASSIUM SERUM 3.5 MMOL/L (3.5-5.1); SODIUM LEVEL 139 MMOL/L (136-145); TOTAL PROTEIN 8.1 G/DL (5.7-8.2); TRIGLYCERIDES LEVEL 99 MG/DL (<150)
== END ==
LOC: M LABDRWAD 12:55 → M LAB REF 12:55
PROVIDERS: ATTEND Internal Medicine
DX: K70.30 Alcoholic cirrhosis of liver without ascites (principal); D69.6 Thrombocytopenia, unspecified; E11.36 Type 2 diabetes mellitus with diabetic cataract

== ENCOUNTER → 2024-09-12 | Outpatient (REF) | payer MEDICARE ==
[2024-09-12 18:05] LABS: ALBUMIN 3.5 G/DL (3.2-5.2); ALKALINE PHOSPHATASE 82 U/L (40-129); ALT/SGPT 18 U/L (7.0-40); AST/SGOT 17 U/L (<34); BILIRUBIN,TOTAL 1.5 MG/DL (0.3-1.2); BLOOD UREA NITROGEN 19 MG/DL (9-23); CALCIUM LEVEL 9.1 MG/DL (8.3-10.6); CARBON DIOXIDE LEVEL 33 MMOL/L (20-31); CHLORIDE LEVEL 100 MMOL/L (98-107); CHOLESTEROL LEVEL 184 MG/DL (<200); CHOLESTEROL RISK RATIO 3.27 (<5); CREATININE FOR GFR 0.96 MG/DL (0.70-1.30); GLOMERULAR FILTRATION RATE > 60.0 (>42); GLUCOSE, FASTING 150 MG/DL (74-106); HDL CHOLESTEROL 56.1 MG/DL (>40); LDL CHOLESTEROL 106.1 MG/DL (<100); NON-HDL-C 127.9 MG/DL; POTASSIUM SERUM 4.4 MMOL/L (3.5-5.1); SODIUM LEVEL 141 MMOL/L (136-145); TOTAL PROTEIN 8.4 G/DL (5.7-8.2); TRIGLYCERIDES LEVEL 109 MG/DL (<150)
[2024-09-12 18:08] LABS: BASO % 0.6 % (0.0-1.0); EOS # 0.3 10^3/uL (0.0-0.5); EOS % 4.7 % (0.0-3.0); HEMATOCRIT 50.6 % (42.0-52.0); HEMOGLOBIN 16.6 g/dl (13.5-17.5); LYMPH # 1.1 10^3/uL (1.5-5.0); LYMPH % 16.8 % (24.0-44.0); MEAN CORPUSCULAR HEMOGLOBIN 31.7 pg (27.0-33.0); MEAN CORPUSCULAR HGB CONC 32.8 g/dl (32.0-36.5); MEAN CORPUSCULAR VOLUME 96.7 fl (80.0-96.0); MONO # 0.6 10^3/uL (0.0-0.8); MONO % 9.2 % (2.0-8.0); NEUTROPHILS # 4.6 10^3/uL (1.5-8.5); NEUTROPHILS % 68.4 % (36.0-66.0); RED BLOOD COUNT 5.23 10^6/uL (4.30-6.10); WHITE BLOOD COUNT 6.8 10^3/uL (4.0-10.0)
[2024-09-12 18:12] LABS: PLATELET COUNT, AUTOMATED 72 10^3/uL (150-450)
[2024-09-12 18:25] LABS: MAU/CREAT RATIO 30.2 MCG/MG (0.0-30.0)
[2024-09-12 18:27] LABS: HEMOGLOBIN A1c 6.4 % (4.0-6.0)
== END ==
LOC: M LABDRWAD 17:11
PROVIDERS: ATTEND Internal Medicine
DX: E78.00 Pure hypercholesterolemia, unspecified (principal); E11.36 Type 2 diabetes mellitus with diabetic cataract; K70.30 Alcoholic cirrhosis of liver without ascites

== ENCOUNTER 2024-10-20 13:01 | Emergency (ER) | payer MEDICARE ==
[~2024-10-20] VITALS: Ht 177.8 cm; Wt 114.4 kg
[2024-10-20 13:06] VITALS: TEMP 97.4
[2024-10-20 17:34] VITALS: BP 129/61; O2SAT 98
[2024-10-20 17:37] LABS: BASO % 0.7 % (0.0-1.0); EOS # 0.2 10^3/uL (0.0-0.5); EOS % 3.8 % (0.0-3.0); HEMATOCRIT 42.4 % (42.0-52.0); HEMOGLOBIN 13.9 g/dl (13.5-17.5); LYMPH # 0.7 10^3/uL (1.5-5.0); LYMPH % 15.9 % (24.0-44.0); MEAN CORPUSCULAR HEMOGLOBIN 31.5 pg (27.0-33.0); MEAN CORPUSCULAR HGB CONC 32.8 g/dl (32.0-36.5); MEAN CORPUSCULAR VOLUME 96.1 fl (80.0-96.0); MONO # 0.6 10^3/uL (0.0-0.8); MONO % 13.8 % (2.0-8.0); NEUTROPHILS # 2.8 10^3/uL (1.5-8.5); NEUTROPHILS % 65.6 % (36.0-66.0); RED BLOOD COUNT 4.41 10^6/uL (4.30-6.10); WHITE BLOOD COUNT 4.2 10^3/uL (4.0-10.0)
[2024-10-20 18:17] LABS: PLATELET COUNT, AUTOMATED 58 10^3/uL (150-450)
[2024-10-20] MEDS ORDERED: CEPH500C PO (18:52)
== END 2024-10-20 18:57 | disposition home or self-care (01) ==
LOC: M ED 13:01
DX: S80.812A Abrasion, left lower leg, initial encounter (principal); W22.8XXA Striking against or struck by other objects, initial encounter; Y92.89 Other specified places as the place of occurrence of the external cause; Y93.89 Activity, other specified; Y99.9 Unspecified external cause status; Z79.899 Other long term (current) drug therapy; I10 Essential (primary) hypertension; I48.91 Unspecified atrial fibrillation

== ENCOUNTER → 2025-04-12 | Outpatient (CLI) | payer MEDICARE ==
[~2025-04-12] MED LIST changes: +CEPH500C PO; -TRIA25CR TOP; +TRIA80CR15 TOP
[2025-04-12 13:51] LABS: BASO # 0.0 10^3/uL (0.0-0.2); BASO % 0.3 % (0.0-1.0); EOS # 0.2 10^3/uL (0.0-0.5); EOS % 4.4 % (0.0-3.0); LYMPH # 0.8 10^3/uL (1.5-5.0); LYMPH % 21.3 % (24.0-44.0); MONO # 0.2 10^3/uL (0.0-0.8); MONO % 6.4 % (2.0-8.0); NEUTROPHILS # 2.4 10^3/uL (1.5-8.5); NEUTROPHILS % 67.3 % (36.0-66.0); PLATELET COUNT, AUTOMATED 67 10^3/uL (150-450)
[2025-04-12 14:19] LABS: ALT/SGPT 19 U/L (7.0-40); AST/SGOT 19 U/L (<34); CALCIUM LEVEL 8.6 MG/DL (8.3-10.6); CARBON DIOXIDE LEVEL 29 MMOL/L (20-31); CHLORIDE LEVEL 101 MMOL/L (98-107); CREATININE FOR GFR 0.84 MG/DL (0.70-1.30); CREATININE, URINE 85.6 MG/DL; GLOMERULAR FILTRATION RATE > 90.0 (>42); MALB URINE SIEMENS 4.0 MG/L; MAU/CREAT RATIO 4.6 MCG/MG (0.0-30.0); POTASSIUM SERUM 3.9 MMOL/L (3.5-5.1); SODIUM LEVEL 139 MMOL/L (136-145)
[2025-04-12 16:45] LABS: ESTIMATED AVERAGE GLUCOSE 140.0 MG/DL (60-110)
== END ==
LOC: M LABDRWAD 10:45
PROVIDERS: ATTEND Internal Medicine
DX: E78.00 Pure hypercholesterolemia, unspecified (principal); E11.36 Type 2 diabetes mellitus with diabetic cataract; E11.42 Type 2 diabetes mellitus with diabetic polyneuropathy

== ENCOUNTER → 2025-05-08 | Outpatient (CLI) | payer MEDICARE | LOC: M RAD 08:55 | PROVIDERS: ATTEND Internal Medicine | DX: K70.30 Alcoholic cirrhosis of liver without ascites (principal); N28.1 Cyst of kidney, acquired ==

== ENCOUNTER → 2025-07-06 | Outpatient (CLI) | payer MEDICARE ==
[2025-07-06 17:56] LABS: CREATININE, URINE 132.7 MG/DL
[2025-07-06 17:57] LABS: MALB URINE SIEMENS 9.0 MG/L; MAU/CREAT RATIO 6.7 MCG/MG (0.0-30.0)
[2025-07-06 18:08] LABS: ESTIMATED AVERAGE GLUCOSE 134.0 MG/DL (60-110)
[2025-07-06 18:43] LABS: ALT/SGPT 18.0 U/L (7.0-40); AST/SGOT 22.0 U/L (<34); CALCIUM LEVEL 8.8 MG/DL (8.3-10.6); CARBON DIOXIDE LEVEL 32.0 MMOL/L (20-31); CHLORIDE LEVEL 97.0 MMOL/L (98-107); CHOLESTEROL LEVEL 161.0 MG/DL (<200); CHOLESTEROL RISK RATIO 3.54 (<5); CREATININE FOR GFR 0.9 MG/DL (0.70-1.30); GLOMERULAR FILTRATION RATE 88.5 (>42); LDL CHOLESTEROL 92.6 MG/DL (<100); NON-HDL-C 115.6 MG/DL; POTASSIUM SERUM 4.3 MMOL/L (3.5-5.1); SODIUM LEVEL 138.0 MMOL/L (136-145); TRIGLYCERIDES LEVEL 115.0 MG/DL (<150)
== END ==
LOC: M LABDRWAD 13:31
PROVIDERS: ATTEND Internal Medicine
DX: K70.30 Alcoholic cirrhosis of liver without ascites (principal); D69.6 Thrombocytopenia, unspecified; E11.36 Type 2 diabetes mellitus with diabetic cataract